=== PATIENT | male | born 1960 | race Caucasian/White ===

== ENCOUNTER → 2022-01-19 | Day surgery (SDC) | payer OTHER ==
[~2022-01-19] MED LIST: ADULT LOW DOSE81 MG PO; DEMADEX 20 MG T20 MG PO; DESYREL 50 MG T50 MG PO; ELIQUIS5 MG PO; FUROSEMIDE40 MG PO; JARDIANCE25 MG PO; LACTULOSE10 GM/15 M PO; LEVEMIR FL100 UNIT/1 SQ; LOPRESSOR 25 MG25 MG PO; PROTONIX 40 MG40 M1 PO; VITAMIN B12-FO1 EACH PO; VITAMIN D21250 MCG PO
== END | disposition home or self-care (01) ==
LOC: OR 07:55
DX: K29.80 Duodenitis without bleeding (principal); K29.70 Gastritis, unspecified, without bleeding; K64.0 First degree hemorrhoids; K21.9 Gastro-esophageal reflux disease without esophagitis; K59.09 Other constipation; I10 Essential (primary) hypertension; E11.9 Type 2 diabetes mellitus without complications; E66.3 Overweight; Z68.29 Body mass index [BMI] 29.0-29.9, adult; Z79.4 Long term (current) use of insulin; Z79.899 Other long term (current) drug therapy; Z20.822 Contact with and (suspected) exposure to COVID-19
CPT/HCPCS: 82962; J2704; J7040

== ENCOUNTER → 2022-05-24 | Outpatient (CLI) | payer OTHER | LOC: HEART 5 05-12 08:00 | DX: I25.10 Atherosclerotic heart disease of native coronary artery without angina pectoris (principal); I10 Essential (primary) hypertension; E11.9 Type 2 diabetes mellitus without complications; R06.02 Shortness of breath | CPT/HCPCS: 78452; A9502; J2785 ==

== ENCOUNTER → 2022-05-30 | Outpatient (CLI) | payer OTHER | LOC: HEART 5 11:06 | DX: I25.10 Atherosclerotic heart disease of native coronary artery without angina pectoris (principal); I10 Essential (primary) hypertension; R06.02 Shortness of breath; E11.9 Type 2 diabetes mellitus without complications | CPT/HCPCS: 93306 ==